=== PATIENT | male | born 2005 | race African-American/Black ===

== ENCOUNTER 2023-10-18 21:33 | Emergency (ER) | payer MEDICAID ==
[~2023-10-18] VITALS: Ht 162.6 cm; Wt 77.0 kg
[2023-10-18 22:10] VITALS: TEMP 98.2
[2023-10-18] MEDS: normal saline 1000ML IV soln IV ONE (23:13)
[2023-10-18 23:27] LABS: BASOPHILS % (AUTO) 0.4 % (0-1); EOSINOPHILS % (AUTO) 0.1 % (0-6); HEMATOCRIT 45.9 % (42.0-52.0); HEMOGLOBIN 15.3 g/dl (14.0-17.9); LYMPHOCYTES # (AUTO) 1.1 X10'3 (1.1-4.8); LYMPHOCYTES % (AUTO) 10.3 % (21-51); MEAN CORPUSCULAR HEMOGLOBIN 29.7 PG (27.0-31.0); MEAN CORPUSCULAR HGB CONC 33.3 g/dL (33.0-36.5); MEAN CORPUSCULAR VOLUME 89.5 FL (78-98); MEAN PLATELET VOLUME 10.2 FL (7.4-10.4); MONOCYTES # (AUTO) 0.9 X10'3 (0-0.9); MONOCYTES % (AUTO) 8.2 % (2-12); NEUTROPHILS # (AUTO) 8.9 X10'3 (1.8-7.7); PLATELET COUNT 153 X10'3 (140-440); RED BLOOD COUNT 5.13 X10'6 (4.70-6.10); RED CELL DISTRIBUTION WIDTH 13.7 % (11.5-14.5)
[2023-10-18 23:35] LABS: ALBUMIN 4.1 G/DL (3.4-5.0); ANION GAP 7 (8-16); BLOOD UREA NITROGEN 17 MG/DL (7-18); BUN/CREATININE RATIO 14.3 (10.0-20.0); CALCIUM 9.1 MG/DL (8.5-10.1); CHLORIDE 101 MMOL/L (99-107); CREATININE 1.19 MG/DL (0.60-1.10); GLUCOSE 98 MG/DL (70-104); MAGNESIUM 1.6 MG/DL (1.5-2.4); POTASSIUM 3.5 MMOL/L (3.5-5.1); SODIUM 138 MMOL/L (135-145); TOTAL CARBON DIOXIDE 30.2 MMOL/L (24-32); eCRCL 83 ML/MIN; eGFR 78 ML/MIN
[2023-10-19 02:11] VITALS: BP 122/74; PULSE 66; RESP 16; O2SAT 99
== END 2023-10-19 02:12 | disposition home or self-care (01) ==
LOC: ER 21:34
DX: T67.5XXA Heat exhaustion, unspecified, initial encounter (principal); E86.0 Dehydration; R06.02 Shortness of breath; R51.9 Headache, unspecified; R11.10 Vomiting, unspecified; Z20.822 Contact with and (suspected) exposure to COVID-19; X58.XXXA Exposure to other specified factors, initial encounter; Y93.89 Activity, other specified; Y92.89 Other specified places as the place of occurrence of the external cause; Y99.8 Other external cause status
CPT/HCPCS: 36415; 70450; 71046; 80048; 83735; 84145; 85025; 87811; 93005; 99285; J7030; 99284